=== PATIENT | female | born 1975 | race Caucasian/White ===

== ENCOUNTER 2017-05-01 11:03 | Emergency (ER) | payer MEDICAID ==
[~2017-05-01 11:03] MED LIST: CARV12.5 PO; CIPR500T4 PO; COUM2TAB PO; LISI2.5T55 PO; ST JTAB PO
[2017-05-01 11:06] VITALS: BP 134/91; PULSE 68; RESP 20; TEMP 98.3; O2SAT 100
--- NOTE | 2017-05-01 11:18 | PD ---
Physical Exam Time Seen by Provider: 11:16 Narrative 42 y/o female sent here by Ayden Scott PA-C because her INR was apparently subtherapeutic at 1.8- hx of mechanical heart valve replacement. She was complaining of 2 episodes of near syncope in the last week. Vital signs reviewed. Seen at triage desk. Awaiting bed placement. Data Data Last Documented VS Vital Signs Date Time Temp Pulse Resp B/P Pulse Ox O2 Delivery O2 Flow Rate FiO2 05/01/17 11:06 98.3 68 20 134/91 100 Room Air [facility] Medical Record Reviewed: Yes Supervised Visit with SHEN: Tyrell Curran May 01, 2017 11:18
[2017-05-01] MEDS ORDERED: SODIUM CHLOR 0.9% 1000 ML INJ 1,000 ML IV ONE (11:29)
[2017-05-01 11:30] VITALS: BP 146/93; PULSE 72; RESP 15; O2SAT 99
[2017-05-01] MEDS ORDERED: SODIUM CHLORIDE 0.9% FLUSH 10 ML FLUSH IVF PRN (11:30)
--- NOTE | 2017-05-01 11:30 | PD ---
HPI Chief Complaint: Syncope/Near-Syncope Time Seen by Provider: 11:30 Travel History International Travel<30 days: No Contact w/Intl Traveler<30days: No Traveled to known affect area: No History of Present Illness HPI 42-year-old female is sent to the emergency department from her primary care provider's office for evaluation. Patient had lab work done 1 week ago when she was in his office today for follow-up. She states that she had told him that last week she had 2 episodes of disorientation but she has not had any more this week. She is feeling "fine" today. Upon review of her lab work, patient's iron saturation was 8 and her hemoglobin was 12.9 and her INR was 1.9. This caused her primary care provider to be panicked and send her to the emergency department requesting evaluation and stat treatment. Again patient is not having any symptoms. She actually verbalizes frustration that she was instructed to come here. PFSH Past Medical History Hx Anticoagulant Therapy: Yes (COUMADIN) Depression: Yes Heart Rhythm Problems: No Cardiac Catheterization: Yes (1999) Cardiovascular Problems: Yes High Cholesterol: No Cerebrovascular Accident: Yes Diabetes: No Diminished Hearing: No Hypertension: Yes Neurologic: Yes Immunizations Current: Yes Myocardial Infarction: No Tetanus Vaccination: < 5 Years Influenza Vaccination: Yes ?: Not LMP: 01/11/17 : 2 Para: 1 Miscarriage: 1 Tubal Ligation: Yes Past Surgical History Body Medical Devices: [facility] AORTIC VALVE Cardiac Surgery: Yes (MECHANICAL HEART VALVE) Valve Replacement: Yes Social History Alcohol Use: Yes Tobacco Use: No Substance Use: No Allergies-Medications (Allergen,Severity, Reaction): Coded Allergies: No Known Allergies (Verified , 05/01/17) Reported Meds & Prescriptions Reported Meds & Active Scripts Active Review of Systems Except as stated in HPI: all other systems reviewed are Neg Physical Exam Narrative GENERAL: Well-nourished female patient in no acute distress SKIN: Focused skin assessment warm/dry. HEAD: Atraumatic. Normocephalic. EYES: Pupils equal and round. No scleral icterus. No injection or drainage. ENT: No nasal bleeding or discharge. Mucous membranes pink and moist. NECK: Trachea midline. No JVD. CARDIOVASCULAR: Regular rate and rhythm. No murmur appreciated. RESPIRATORY: No accessory muscle use. Clear to auscultation. Breath sounds equal bilaterally. GASTROINTESTINAL: Abdomen soft, non-tender, nondistended. Hepatic and splenic margins not palpable. MUSCULOSKELETAL: No obvious deformities. No clubbing. No cyanosis. No edema. NEUROLOGICAL: Awake and alert. No obvious cranial nerve deficits. Motor grossly within normal limits. Normal speech. PSYCHIATRIC: Appropriate mood and affect; insight and judgment normal. Data Data Last Documented VS Vital Signs Date Time Temp Pulse Resp B/P Pulse Ox O2 Delivery O2 Flow Rate FiO2 05/01/17 13:58 70 15 99 05/01/17 11:30 146/93 Room Air 05/01/17 11:06 98.3 Orders Electrocardiogram (05/01/17 11:29) Basic Metabolic Panel (Bmp) (05/01/17 11:29) Complete Blood Count With Diff (05/01/17 11:29) Act Partial Throm Time (Ptt) (05/01/17 11:29) Prothrombin Time / Inr (Pt) (05/01/17 11:29) Urinalysis - C+S If Indicated (05/01/17 11:29) Ecg Monitoring (05/01/17 11:29) Iv Access Insert/Monitor (05/01/17 11:29) Oximetry (05/01/17 11:29) Sodium Chloride 0.9% Flush (Ns Flush) (05/01/17 11:30) Sodium Chlor 0.9% 1000 Ml Inj (Ns 1000 M (05/01/17 11:29) Iron/Tibc Profile (05/01/17 11:46) Sodium Ferric Gluconate Inj (Ferrlecit I (05/01/17 12:00) Labs Laboratory Tests Test 05/01/17 05/01/17 05/01/17 11:30 11:35 11:50 White Blood Count 8.1 TH/MM3 Red Blood Count 4.52 MIL/MM3 Hemoglobin 12.9 GM/DL Hematocrit 39.0 % Mean Corpuscular Volume 86.3 FL Mean Corpuscular Hemoglobin 28.6 PG Mean Corpuscular Hemoglobin 33.1 % Concent Red Cell Distribution Width 20.8 % Platelet Count 206 TH/MM3 Mean Platelet Volume 8.9 FL Neutrophils (%) (Auto) 68.6 % Lymphocytes (%) (Auto) 19.6 % Monocytes (%) (Auto) 9.4 % Eosinophils (%) (Auto) 1.4 % Basophils (%) (Auto) 1.0 % Neutrophils # (Auto) 5.6 TH/MM3 Lymphocytes # (Auto) 1.6 TH/MM3 Monocytes # (Auto) 0.8 TH/MM3 Eosinophils # (Auto) 0.1 TH/MM3 Basophils # (Auto) 0.1 TH/MM3 CBC Comment DIFF FINAL Differential Comment Prothrombin Time 30.1 SEC Prothromb Time International 2.6 RATIO Ratio Activated Partial 36.6 SEC Thromboplast Time Sodium Level 137 MEQ/L Potassium Level 4.0 MEQ/L Chloride Level 104 MEQ/L Carbon Dioxide Level 23.8 MEQ/L Anion Gap 9 MEQ/L Blood Urea Nitrogen 9 MG/DL Creatinine 0.66 MG/DL Estimat Glomerular Filtration 98 ML/MIN Rate Random Glucose 85 MG/DL Calcium Level 8.2 MG/DL Urine Color COLORLESS Urine Turbidity CLEAR Urine pH 5.0 Urine Specific [place] 1.002 Urine Protein NEG mg/dL Urine Glucose (UA) NEG mg/dL Urine Ketones NEG mg/dL Urine Occult Blood NEG Urine Nitrite NEG Urine Bilirubin NEG Urine Urobilinogen LESS THAN 2.0 MG/DL Urine Leukocyte Esterase NEG Urine RBC LESS THAN 1 /hpf Urine Squamous Epithelial <1 /hpf Cells Microscopic Urinalysis Comment CULT NOT INDICATED Iron Level 23 MCG/DL Total Iron Binding Capacity 462 MCG/DL Percent Iron Saturation 5.0 % [facility] Medical Decision Making Medical Screen Exam Complete: Yes Emergency Medical Condition: Yes Medical Record Reviewed: Yes Differential Diagnosis Normal examination versus pernicious anemia versus iron deficiency versus symptomatic anemia Narrative Course 42-year-old female presents to the emergency department for evaluation. Patient appears without distress. She has no current symptoms to report. He comes with a prescription hand regarding abnormal lab work and requests for stat evaluation and treatment. Lab work will be repeated. Laboratory Tests Test 05/01/17 05/01/17 05/01/17 11:30 11:35 11:50 White Blood Count 8.1 TH/MM3 Red Blood Count 4.52 MIL/MM3 Hemoglobin 12.9 GM/DL Hematocrit 39.0 % Mean Corpuscular Volume 86.3 FL Mean Corpuscular Hemoglobin 28.6 PG Mean Corpuscular Hemoglobin 33.1 % Concent Red Cell Distribution Width 20.8 % Platelet Count 206 TH/MM3 Mean Platelet Volume 8.9 FL Neutrophils (%) (Auto) 68.6 % Lymphocytes (%) (Auto) 19.6 % Monocytes (%) (Auto) 9.4 % Eosinophils (%) (Auto) 1.4 % Basophils (%) (Auto) 1.0 % Neutrophils # (Auto) 5.6 TH/MM3 Lymphocytes # (Auto) 1.6 TH/MM3 Monocytes # (Auto) 0.8 TH/MM3 Eosinophils # (Auto) 0.1 TH/MM3 Basophils # (Auto) 0.1 TH/MM3 CBC Comment DIFF FINAL Differential Comment Prothrombin Time 30.1 SEC Prothromb Time International 2.6 RATIO Ratio Activated Partial 36.6 SEC Thromboplast Time Sodium Level 137 MEQ/L Potassium Level 4.0 MEQ/L Chloride Level 104 MEQ/L Carbon Dioxide Level 23.8 MEQ/L Anion Gap 9 MEQ/L Blood Urea Nitrogen 9 MG/DL Creatinine 0.66 MG/DL Estimat Glomerular Filtration 98 ML/MIN Rate Random Glucose 85 MG/DL Calcium Level 8.2 MG/DL Urine Color COLORLESS Urine Turbidity CLEAR Urine pH 5.0 Urine Specific [place] 1.002 Urine Protein NEG mg/dL Urine Glucose (UA) NEG mg/dL Urine Ketones NEG mg/dL Urine Occult Blood NEG Urine Nitrite NEG Urine Bilirubin NEG Urine Urobilinogen LESS THAN 2.0 MG/DL Urine Leukocyte Esterase NEG Urine RBC LESS THAN 1 /hpf Urine Squamous Epithelial <1 /hpf Cells Microscopic Urinalysis Comment CULT NOT INDICATED Iron Level 23 MCG/DL Total Iron Binding Capacity 462 MCG/DL Percent Iron Saturation 5.0 % Patient is given 25 mg of sodium ferric gluconate over one hour. I discussed the patient my attending physician Go she can be discharged home. Patient agrees to follow-up with her primary care provider. Diagnosis Primary Impression: Normal physical exam Additional Impression: Low serum iron Referrals: Primary Care Physician Patient Instructions: General Instructions, Iron Rich Diet (ED) Additional Instructions: Follow-up with her primary care provider Return immediately with any acute worsening of symptoms Med/Other Pt SpecificInfo: No Change to Meds Disposition: 01 DISCHARGE HOME Condition: Stable OliverioMaria Isabel VAUGHN May 01, 2017 11:30
[2017-05-01 11:50] LABS: AUTOMATED NEUTROPHIL # 5.6 TH/MM3 (1.8-7.7); BASOPHIL # 0.1 TH/MM3 (0-0.2); EOSINOPHIL # 0.1 TH/MM3 (0-0.4); EOSINOPHIL % 1.4 % (0.0-4.0); HEMO FLAGS DIFF FINAL; LYMPH % 19.6 % (9.0-44.0); LYMPHOCYTE # 1.6 TH/MM3 (1.0-4.8); MEAN CELL VOLUME 86.3 FL (80.0-100.0); MEAN CORPUSCULAR HEMOGLOBIN 28.6 PG (27.0-34.0); MEAN CORPUSCULAR HGB CONC 33.1 % (32.0-36.0); MONO % 9.4 % (0.0-8.0); NEUT % 68.6 % (16.0-70.0); PLATELET COUNT 206 TH/MM3 (150-450); RED BLOOD COUNT 4.52 MIL/MM3 (4.00-5.30); RED CELL DISTRIBUTION WIDTH 20.8 % (11.6-17.2); WHITE BLOOD COUNT 8.1 TH/MM3 (4.0-11.0)
[2017-05-01] MEDS ORDERED: SODIUM FERRIC GLUCONATE INJ 125 MG in SODIUM CHLORIDE 0.9% INJ 100 ML IV ONE (12:00)
[2017-05-01 12:04] LABS: APTT (PATIENT) 36.6 SEC (24.3-30.1); INTERNATIONAL NORMALIZED RATIO 2.6 RATIO; PROTHROMBIN TIME - PATIENT 30.1 SEC (9.8-11.6)
[2017-05-01 12:09] LABS: BLOOD, URINE NEG (NEG); COMMENT (UR) CULT NOT INDICATED; CULTURE IF INDICATED CULT NOT INDICATED; GLUCOSE,URINE NEG (NEG); KETONE, URINE NEG (NEG); NITRITE,URINE NEG (NEG); SQUAMOUS EPITHELIAL CELL URINE <1 /hpf (0-5); URINE COLOR COLORLESS (YELLW/STRAW)
[2017-05-01 12:16] LABS: BICARBONATE 23.8 MEQ/L (21.0-32.0)
[2017-05-01 12:29] LABS: TRANSFERRIN IRON PROFILE 330 MG/DL (200-360)
--- NOTE | 2017-05-02 15:00 | EKG ---
Date Performed: 05/01/2017 Time Performed: 11:44:06 PTAGE: 42 years EKG: Sinus rhythm POSSIBLE LEFT ATRIAL ENLARGEMENT LEFT VENTRICULAR HYPERTROPHY AND ST-T CHANGE ABNORMAL ECG PREVIOUS TRACING : 12/28/2015 02.00 Compared to prior tracing no significant change DOCTOR: Arron Costello Interpretating Date/Time 05/02/2017 14:58:08
== END 2017-05-01 14:02 | disposition home or self-care (01) ==
LOC: NEPC 11:03
DX: D50.9 Iron deficiency anemia, unspecified (principal)
CPT/HCPCS: 80048; 81001; 83540; 83550; 85025; 85610; 85730; 93005; 96361; 96365; 99284; J2916; J7030